=== PATIENT | female | born 1955 | race African-American/Black ===

== ENCOUNTER 2016-10-22 22:53 | Emergency (ER) | payer OTHER ==
[~2016-10-22] VITALS: Ht 162.6 cm; Wt 65.2 kg
[~2016-10-22 22:53] MED LIST: 1-ME1LIQ PO; AMLO10TA2 PO; LIPI20TA PO; MEDR4PAK PO; MOBI7.5T PO; NAPR250T PO; OXYB5TAB PO
[2016-10-22 22:55] VITALS: BP 157/84; PULSE 98; RESP 16; TEMP 98.4; O2SAT 98
[2016-10-22] MEDS ORDERED: SODIUM CHLOR 0.9% 1000 ML INJ 1,000 ML IV SCH (23:44)
[2016-10-22] MEDS ORDERED: ONDANSETRON HCL 4 MG/2 ML VIAL IVP ONE (23:45)
[2016-10-22] MEDS ORDERED: MORPHINE SULFATE 4 MG/ML INJ IV PUSH ONE (23:45)
[2016-10-22] MEDS ORDERED: PANTOPRAZOLE SODIUM 40 MG VIAL IVP ONE (23:45)
[2016-10-22] MEDS ORDERED: metroNIDAZOLE 500 MG INJ 100 ML IV ONE (23:45)
--- NOTE | 2016-10-22 23:51 | PD ---
HPI Chief Complaint: abdominal pain Time Seen by Provider: 23:39 Travel History International Travel<30 days: No Contact w/Intl Traveler<30days: No Traveled to known affect area: No History of Present Illness HPI 61-year-old female complains of low abdominal pain. Patient states the abdominal pain started 5 days ago. Patient states the pain is cramping pain and sharp pain localized to lower abdomen. Patient denies any pain radiation. Patient denies any nausea vomiting. Patient stated that she has diarrhea. Patient denies any fever chills. Patient denies any back pain. Patient states that she had dysuria but no frequency. Patient has history of ulcerative colitis. On a scale of 1-10 the pain is a 10. PFSH Past Medical History Asthma: No Autoimmune Disease: No Cancer: Yes (pancreatic ca.) COPD: No Diabetes: No Diminished Hearing: No Hypertension: Yes Respiratory: No Immunizations Current: Yes Sleep Apnea: No Menopausal: Yes Past Surgical History Abdominal Surgery: Yes (SURGERY FOR SCAR TISSUE) Appendectomy: Yes Cholecystectomy: Yes Hysterectomy: Yes Social History Alcohol Use: No Tobacco Use: No Substance Use: No Allergies-Medications (Allergen,Severity, Reaction): Coded Allergies: Darvocet-N 100 (Verified Allergy, Mild, NAUSEA, 10/22/16) Penicillin (Verified Allergy, Mild, "MAKES ME FEEL BAD", 10/22/16) Reported Meds & Prescriptions Reported Meds & Active Scripts Active Flagyl (Metronidazole) 500 Mg Tab 500 Mg PO TID Cipro (Ciprofloxacin HCl) 500 Mg Tab 500 Mg PO BID Amlodipine (Amlodipine Besylate) 10 Mg Tab 10 Mg PO DAILY Reported Apriso (Mesalamine) 0.375 Gm Caper 1.5 Gm PO DAILY Review of Systems General / Constitutional: No: Fever Eyes: No: Visual changes HENT: No: Headaches Cardiovascular: No: Chest Pain or Discomfort Respiratory: No: Shortness of Breath Gastrointestinal: Positive: Diarrhea, Abdominal Pain Genitourinary: No: Dysuria Musculoskeletal: No: Pain Skin: No Rash Neurologic: No: Weakness Psychiatric: No: Depression Endocrine: No: Polydipsia Hematologic/Lymphatic: No: Easy Bruising Physical Exam Narrative GENERAL: Well-nourished, well-developed patient. SKIN: Focused skin assessment warm/dry. HEAD: Normocephalic. EYES: No scleral icterus. No injection or drainage. NECK: Supple, trachea midline. No JVD or lymphadenopathy. CARDIOVASCULAR: Regular rate and rhythm without murmurs, gallops, or rubs. RESPIRATORY: Breath sounds equal bilaterally. No accessory muscle use. GASTROINTESTINAL: Abdomen soft, nondistended. Patient has moderate tenderness on palpation lower abdomen. No rebound tenderness. No mass. MUSCULOSKELETAL: No cyanosis, or edema. BACK: Nontender without obvious deformity. No CVA tenderness. Neurologic exam normal. Data Data Last Documented VS Vital Signs Date Time Temp Pulse Resp B/P Pulse Ox O2 Delivery O2 Flow Rate FiO2 10/23/16 01:55 72 16 140/73 99 Room Air 10/22/16 22:55 98.4 Orders Complete Blood Count With Diff (10/22/16 23:44) Comprehensive Metabolic Panel (10/22/16 23:44) Prothrombin Time / Inr (Pt) (10/22/16 23:44) Act Partial Throm Time (Ptt) (10/22/16 23:44) Urinalysis - C+S If Indicated (10/22/16 23:44) Ct Abd/Pel W Iv Contrast(Rout) (10/22/16 23:44) Iv Access Insert/Monitor (10/22/16 23:44) Ecg Monitoring (10/22/16 23:44) Oximetry (10/22/16 23:44) Morphine Inj (Morphine Inj) (10/22/16 23:45) Ondansetron Inj (Zofran Inj) (10/22/16 23:45) Pantoprazole Inj (Protonix Inj) (10/22/16 23:45) Sodium Chlor 0.9% 1000 Ml Inj (Ns 1000 M (10/22/16 23:44) Metronidazole 500 Mg Inj (Flagyl 500 Mg (10/22/16 23:45) Iohexol 350 Inj (Omnipaque 350 Inj) (10/23/16 01:03) Labs Laboratory Tests Test 10/23/16 10/23/16 00:10 00:15 Urine Color YELLOW Urine Turbidity CLEAR Urine pH 5.5 Urine Specific Presto 1.020 Urine Protein NEG mg/dL Urine Glucose (UA) NEG mg/dL Urine Ketones NEG mg/dL Urine Occult Blood MOD Urine Nitrite NEG Urine Bilirubin NEG Urine Leukocyte Esterase NEG Urine RBC 4-9 /hpf Urine WBC 0-2 /hpf Urine Squamous Epithelial 6-8 /hpf Cells Urine Bacteria NONE /hpf Microscopic Urinalysis Comment CULT NOT INDICATED White Blood Count 11.1 TH/MM3 Red Blood Count 4.09 MIL/MM3 Hemoglobin 11.7 GM/DL Hematocrit 36.2 % Mean Corpuscular Volume 88.7 FL Mean Corpuscular Hemoglobin 28.7 PG Mean Corpuscular Hemoglobin 32.4 % Concent Red Cell Distribution Width 13.7 % Platelet Count 275 TH/MM3 Mean Platelet Volume 9.5 FL Neutrophils (%) (Auto) 45.8 % Lymphocytes (%) (Auto) 33.3 % Monocytes (%) (Auto) 19.5 % Eosinophils (%) (Auto) 0.7 % Basophils (%) (Auto) 0.7 % Neutrophils # (Auto) 5.0 TH/MM3 Lymphocytes # (Auto) 3.7 TH/MM3 Monocytes # (Auto) 2.2 TH/MM3 Eosinophils # (Auto) 0.1 TH/MM3 Basophils # (Auto) 0.1 TH/MM3 CBC Comment AUTO DIFF Differential Comment AUTO DIFF CONFIRMED Platelet Estimate NORMAL Platelet Morphology Comment NORMAL Red Cell Morphology Comment NORMAL Prothrombin Time 12.0 SEC Prothromb Time International 1.1 RATIO Ratio Activated Partial 30.6 SEC Thromboplast Time Sodium Level 141 MEQ/L Potassium Level 3.9 MEQ/L Chloride Level 106 MEQ/L Carbon Dioxide Level 26.2 MEQ/L Anion Gap 9 MEQ/L Blood Urea Nitrogen 12 MG/DL Creatinine 0.88 MG/DL Estimat Glomerular Filtration 79 ML/MIN Rate Random Glucose 97 MG/DL Calcium Level 7.9 MG/DL Total Bilirubin 0.4 MG/DL Aspartate Amino Transf 18 U/L (AST/SGOT) Alanine Aminotransferase 31 U/L (ALT/SGPT) Alkaline Phosphatase 137 U/L Total Protein 8.4 GM/DL Albumin 3.5 GM/DL [facility] Medical Decision Making Medical Screen Exam Complete: Yes Emergency Medical Condition: Yes Interpretation(s) Last Impressions Abdomen/Pelvis CT 10/22/16 6154 Signed Impressions: Service Date/Time: September 00:51 - CONCLUSION: 1. No acute finding is identified within the abdomen or pelvis to explain the clinical symptoms. Please note examination quality is degraded by respiratory motion artifact. 2. There is enlargement of the common bile duct but patient is post cholecystectomy and there is no intrahepatic bile duct dilatation. This suggest a postcholecystectomy change is the cause. Jasper May MD 2:26 AM. CBC within normal limit. WBC 11.1. Normal differential. CMP within normal limit. Calcium 7.9. UA positive RBC. Differential Diagnosis Differential diagnosis including UTI, pyelonephritis, nephrolithiasis, colitis. Narrative Course 61-year-old female with low abdominal pain. History of colitis. Normal saline solution 1 25 cc an hour. Morphine 2 mg IV. Zofran 4 mg IV. Protonix 40 mg IV. Flagyl 500 mg IV. Diagnosis Primary Impression: Colitis Additional Impression: Gastroenteritis Patient Instructions: General Instructions Additional Instructions: Take medications as directed. Follow-up with personal physician. Return if persistent problem or worse. Med/Other Pt SpecificInfo: Prescription(s) given Scripts Metronidazole (Flagyl)500 Mg [id number] Mg PO TID #21 TAB Ref 0 Prov:Fuad Graves MD 10/23/16 Ciprofloxacin (Cipro)500 Mg [id number] Mg PO BID #14 TAB Prov:Fuad Graves MD 10/23/16 Disposition: 01 DISCHARGE HOME Condition: Stable Fuad Graves MD Oct 22, 2016 23:51
[2016-10-23 00:18] LABS: GLUCOSE,URINE NEG (NEG); KETONE, URINE NEG (NEG); NITRITE,URINE NEG (NEG); PH, URINE 5.5 (5.0-8.5)
[2016-10-23 00:24] LABS: BASOPHIL # 0.1 TH/MM3 (0-0.2); BASOPHIL % 0.7 % (0.0-2.0); EOSINOPHIL # 0.1 TH/MM3 (0-0.4); EOSINOPHIL % 0.7 % (0.0-4.0); HEMATOCRIT 36.2 % (35.0-46.0); LYMPH % 33.3 % (9.0-44.0); LYMPHOCYTE # 3.7 TH/MM3 (1.0-4.8); MEAN CELL VOLUME 88.7 FL (80.0-100.0); MEAN CORPUSCULAR HEMOGLOBIN 28.7 PG (27.0-34.0); MEAN CORPUSCULAR HGB CONC 32.4 % (32.0-36.0); MONO % 19.5 % (0.0-8.0); NEUT % 45.8 % (16.0-70.0); PLATELET COUNT 275 TH/MM3 (150-450); RED BLOOD COUNT 4.09 MIL/MM3 (4.00-5.30); RED CELL DISTRIBUTION WIDTH 13.7 % (11.6-17.2); WHITE BLOOD COUNT 11.1 TH/MM3 (4.0-11.0)
[2016-10-23 00:30] LABS: BLOOD, URINE MOD (NEG)
[2016-10-23 00:31] LABS: COMMENT (UR) CULT NOT INDICATED; CULTURE IF INDICATED CULT NOT INDICATED; URINE COLOR YELLOW (YELLW/STRAW); WBC, URINE 0-2 /hpf (0-5)
[2016-10-23 00:32] LABS: CHLORIDE 106 MEQ/L (98-107); POTASSIUM 3.9 MEQ/L (3.5-5.1); SODIUM (NA) 141 MEQ/L (136-145)
[2016-10-23 00:34] LABS: HEMO FLAGS AUTO DIFF
[2016-10-23 00:36] LABS: ANION GAP 9 MEQ/L (5-15); BICARBONATE 26.2 MEQ/L (21.0-32.0); BLOOD UREA NITROGEN 12 MG/DL (7-18)
[2016-10-23 00:38] LABS: APTT (PATIENT) 30.6 SEC (24.3-30.1); INTERNATIONAL NORMALIZED RATIO 1.1 RATIO
[2016-10-23 00:39] LABS: ALT (GPT) 31 U/L (10-53); AST (GOT) 18 U/L (15-37); GLOMERULAR FILTRATION RATE 79 ML/MIN (>89)
[2016-10-23 00:41] LABS: TOTAL BILIRUBIN ADULT 0.4 MG/DL (0.2-1.0)
[2016-10-23 00:42] LABS: ALKALINE PHOSPHATASE 137 U/L (45-117)
[2016-10-23 00:49] LABS: PLATELET ESTIMATE SMEAR NORMAL (NORMAL); PLATELET MORPHOLOGY NORMAL (NORMAL); SCAN/DIFF AUTO DIFF CONFIRMED
[2016-10-23] MEDS ORDERED: IOHEXOL 350 MG/ML 10 ML VIAL (for RAD DIAG) IV ONE (01:03)
--- NOTE | 2016-10-23 01:20 | RADRPT ---
EXAM DATE/TIME: 10/23/2016 00:51 [facility] COMPARISON: No previous studies available for comparison. INDICATIONS : Lower abdominal pain. IV CONTRAST: 100 cc Omnipaque 350 (iohexol) IV ORAL CONTRAST: No oral contrast ingested. RADIATION DOSE: 6.85 CTDIvol (mGy) MEDICAL HISTORY : Carcinoma, pancreas. Hypertension. Ulcerative colitis. SURGICAL HISTORY : Cholecystectomy. Appendectomy.Hysterectomy. ENCOUNTER: Initial ACUITY: 4 - 6 days PAIN SCALE: 10/10 LOCATION: lower quadrant abdomen TECHNIQUE: Volumetric scanning of the abdomen and pelvis was performed. Using automated exposure control and ad justment of the mA and/or kV according to patient size, radiation dose was kept as low as reasonably achievable to obtain optimal diagnostic quality images. DICOM format image data is available electro nically for review and comparison. FINDINGS: There is respiratory motion artifact. LOWER LUNGS: The visualized lower lungs are clear. LIVER: Liver density is suggestive of steatosis. No liver lesion is identified. There are clips in the gallb ladder fossa and in the right upper quadrant in general. Common bile duct is dilated measuring 10 mm. There is no dilation of the biliary tree. SPLEEN: Normal size without lesion. PANCREAS: Not well visualized due to the artifact but no pancreas abnormality is seen. KIDNEYS: Normal in size and shape. There is no mass, stone or hydronephrosis. ADRENAL GLANDS: Within normal limits. VASCULAR: There is no aortic aneurysm. There is mild atherosclerotic disease. Duplicated IVC is present. BOWEL/MESENTERY: The stomach demonstrates no abnormality. Small bowel proximally is within normal limits. There is an enlarged segment of bowel in the right lower quadrant with a bowel staple line indicating prior surge ry. No colon abnormality is seen. There is no free intraperitoneal air or fluid. ABDOMINAL WALL: Within normal limits. RETROPERITONEUM: There is no lymphadenopathy. BLADDER: No wall thickening or mass. REPRODUCTIVE: Uterus is absent. INGUINAL: There is no lymphadenopathy or hernia. MUSCULOSKELETAL: No acute abnormality. CONCLUSION: 1. No acute finding is identified within the abdomen or pelvis to explain the clinical symptoms. Plea se note examination quality is degraded by respiratory motion artifact. 2. There is enlargement of the common bile duct but patient is post cholecystectomy and there is no i ntrahepatic bile duct dilatation. This suggest a postcholecystectomy change is the cause. Jasper May MD on October 23, 2016 at 1:13 Board Certified Radiologist. This report was verified electronically.
[2016-10-23 01:50] VITALS: RESP 16; O2SAT 99
[2016-10-23 01:55] VITALS: BP 140/73; PULSE 72; RESP 16; O2SAT 99
[2016-10-23] MEDS ORDERED: APRI0.372 PO (02:17)
[2016-10-23] MEDS ORDERED: METR-1 PO (02:29)
[2016-10-23] MEDS ORDERED: CIPR-9 PO (02:29)
[2016-10-23 02:30] VITALS: BP 137/71; PULSE 68; RESP 16; O2SAT 98
== END 2016-10-23 02:59 | disposition home or self-care (01) ==
LOC: PHED 22:53
DX: K51.90 Ulcerative colitis, unspecified, without complications (principal)
CPT/HCPCS: 74177; 80053; 81001; 85025; 85610; 85730; 96365; 96366; 96375; 99285; C9113; J2270; J2405; J7030; Q9967

== ENCOUNTER → 2016-12-03 | Outpatient (CLI) | payer OTHER ==
[~2016-12-03] VITALS: Ht 162.6 cm; Wt 63.4 kg
[~2016-12-03] MED LIST changes: -1-ME1LIQ PO; +APRI0.372 PO; +B-12100T PO; +CHLORHEXIDINE GLUCONATE 2 % 1 PACK (2 CLOTHS) TOPICAL PRN; +CIPR-9 PO; +INSULIN HUMAN REGULAR 1,000 UNITS/10 ML VIAL SQ PRN; +LACTATED RINGER'S 1000 ML IV PRN; -LIPI20TA PO; -MEDR4PAK PO; +METOPROLOL TARTRATE 25 MG TAB PO PRN; +METR-1 PO; -MOBI7.5T PO; -NAPR250T PO; -OXYB5TAB PO; +POVIDONE IODINE 5% (ANTISEPSIS KIT) 4 APPLICATIONS EACH NARE PRN; +PROPOFOL 200 MG/20 ML AMP IV PUSH ONE; +SODIUM CHLORID 0.9% 500 ML IV PRN
--- NOTE | 2016-12-03 15:11 | MR ---
cc: BAUTISTA RODRIGES M.D. DATE: 12/03/2016 DATE OF : 1955 PROCEDURE Colonoscopy. INDICATION FOR PROCEDURE Prior history of ulcer, proctocolitis, colorectal cancer screening. PHOTOGRAPHS AND BIOPSIES Photographs and biopsies were taken. PREMEDICATION Administered by anesthesiology. MONITORING Monitoring was accomplished with pulse oximeter, EKG and blood pressure monitor. PROCEDURE NOTE After informed consent was obtained and the procedure risks and benefits were explained including risks of bleeding, sepsis, perforation, risks of anesthesia, the patient was placed in the left lateral position. The video colonoscope was inserted in the rectum, passed all the way to the cecum in the usual fashion. The mucosa throughout appeared to be grossly normal. The terminal ileum appeared to be normal as well. In the ascending colon scattered diverticulosis was noted. Mucosa throughout was normal. As the scope was withdrawn there was no evidence of active inflammatory bowel disease. Multiple biopsies were taken in the ascending, transverse, descending, rectosigmoid and rectum. The rectum appeared to be free of disease as well. In the retroflex view, grade I to early grade II internal hemorrhoids were noted without active bleeding. The patient tolerated the procedure well. IMPRESSION 1. Unremarkable colonoscopy to cecum. 2. Diverticular disease noted in the right colon. 3. Internal hemorrhoids as noted above. 4. No active inflammatory bowel disease noted. PLAN 1. Would continue her current mesalamine therapy. 2. Follow-up biopsies. 3. Repeat colonoscopy in 2-3 years for surveillance. MD VESNA Katz/PRUDENCE /2:48 PM /3:01 PM
[2016-12-03 15:18] VITALS: BP 154/78; PULSE 65; RESP 18; O2SAT 100
--- NOTE | 2016-12-04 13:01 | EKG ---
Date Performed: 12/03/2016 Time Performed: 11:43:04 PTAGE: 61 years EKG: Sinus rhythm BORDERLINE LEFT AXIS DEVIATION MINIMAL VOLTAGE CRITERIA FOR LVH, CONSIDER NORMAL VARIANT BORDERLINE ECG PREVIOUS TRACING : 02/13/2003 05.25 DOCTOR: Dorian Abarca Interpretating Date/Time 12/04/2016 12:53:15
== END ==
LOC: HEND 11:19
PROVIDERS: ATTEND Internal Medicine Gastroenterology
DX: Z12.11 Encounter for screening for malignant neoplasm of colon (principal); K57.90 Diverticulosis of intestine, part unspecified, without perforation or abscess without bleeding; K64.8 Other hemorrhoids; R94.31 Abnormal electrocardiogram [ECG] [EKG]
CPT/HCPCS: 00810; 45380; 88305; 93005; J7120

== ENCOUNTER 2017-05-26 18:51 | Emergency (ER) | payer OTHER ==
[~2017-05-26 18:51] MED LIST changes: -CHLORHEXIDINE GLUCONATE 2 % 1 PACK (2 CLOTHS) TOPICAL PRN; -CIPR-9 PO; -INSULIN HUMAN REGULAR 1,000 UNITS/10 ML VIAL SQ PRN; -LACTATED RINGER'S 1000 ML IV PRN; -METOPROLOL TARTRATE 25 MG TAB PO PRN; -METR-1 PO; -POVIDONE IODINE 5% (ANTISEPSIS KIT) 4 APPLICATIONS EACH NARE PRN; -PROPOFOL 200 MG/20 ML AMP IV PUSH ONE; -SODIUM CHLORID 0.9% 500 ML IV PRN
[2017-05-26 19:02] VITALS: BP 159/84; PULSE 88; RESP 15; TEMP 98.4; O2SAT 100
[2017-05-26] MEDS ORDERED: MOBI7.5T PO (20:00)
[2017-05-26] MEDS ORDERED: KETOROLAC TROMETHAMINE 60 MG/2 ML (IM) VIAL IM ONE (20:00)
--- NOTE | 2017-05-26 20:06 | PD ---
HPI Chief Complaint: Pain: Acute or Chronic Time Seen by Provider: 19:15 Travel History International Travel<30 days: No Contact w/Intl Traveler<30days: No Traveled to known affect area: No History of Present Illness HPI 61-year-old female with history of bursitis and arthritis presents to the emergency room for evaluation of severe arthritis in her bilateral hands and upper extremities. Patient has chronic pain but over the past several days it has significantly worsened. She went to her primary care physician yesterday who recommended she take Tylenol. States she has been taking Tylenol without any relief in symptoms. Pain is constant, worse with range of motion. Improves at rest. She has tried several topical treatments without relief. Only reports history of hypertension and ulcerative colitis. She denies any recent strenuous activity. Denies any changes in urine output. PFSH Past Medical History Asthma: No Autoimmune Disease: No Cancer: Yes (pancreatic ca.) Cardiovascular Problems: No COPD: No Diabetes: No Diminished Hearing: No Endocrine: No Gastrointestinal Disorders: Yes (ULCERATIVE COLITIS) Genitourinary: No Hepatitis: No Hiatal Hernia: No Hypertension: Yes Immune Disorder: No Musculoskeletal: No Neurologic: No Psychiatric: No Reproductive: No Respiratory: No Immunizations Current: Yes Sleep Apnea: No Thyroid Disease: No ?: Not Menopausal: Yes Past Surgical History Abdominal Surgery: Yes (SURGERY FOR SCAR TISSUE) Appendectomy: Yes Cardiac Surgery: No Cholecystectomy: Yes Ear Surgery: No Endocrine Surgery: No Eye Surgery: No Genitourinary Surgery: No Gynecologic Surgery: Yes (HYSTERECTOMY) Hysterectomy: Yes Joint Replacement: No Oral Surgery: No Thoracic Surgery: No Other Surgery: Yes Social History Alcohol Use: No Tobacco Use: No Substance Use: No Allergies-Medications (Allergen,Severity, Reaction): Coded Allergies: acetaminophen (Unverified Allergy, Mild, NAUSEA, 05/26/17) penicillin G (Unverified Allergy, Mild, "MAKES ME FEEL BAD", 05/26/17) propoxyphene (Unverified Allergy, Mild, NAUSEA, 05/26/17) Reported Meds & Prescriptions Reported Meds & Active Scripts Active Mobic (Meloxicam) 7.5 Mg Tab 7.5 Mg PO DAILY Amlodipine (Amlodipine Besylate) 10 Mg Tab 10 Mg PO DAILY Reported B-12 (Cyanocobalamin) 100 Mcg Tab 100 Mcg PO DAILY Apriso (Mesalamine) 0.375 Gm Caper 1.5 Gm PO DAILY Review of Systems Except as stated in HPI: all other systems reviewed are Neg Physical Exam Narrative GENERAL: Well-nourished, well-developed female no acute distress. Afebrile. Ambulatory. SKIN: Focused skin assessment warm/dry. HEAD: Normocephalic. EYES: No scleral icterus. No injection or drainage. NECK: Supple, trachea midline. No JVD or lymphadenopathy. CARDIOVASCULAR: Regular rate and rhythm without murmurs, gallops, or rubs. RESPIRATORY: Breath sounds equal bilaterally. No accessory muscle use. MUSCULOSKELETAL: No cyanosis. Mild edema bilateral hands, right worse than left. Limited range of motion of the bilateral second finger secondary to pain and swelling. 2+ radial pulses are equal bilaterally. Full range of motion. Tenderness to palpation of bilateral anterior humeral heads. Data Data Last Documented VS Vital Signs Date Time Temp Pulse Resp B/P (MAP) Pulse Ox O2 Delivery O2 Flow Rate FiO2 05/26/17 19:02 98.4 88 15 159/84 (109) 100 Orders Orders Ketorolac Inj (Toradol Inj) (05/26/17 20:00) [facility] Medical Decision Making Medical Screen Exam Complete: Yes Emergency Medical Condition: Yes Medical Record Reviewed: Yes Differential Diagnosis Osteoarthritis, rheumatoid arthritis, bursitis, rhabdomyolysis unlikely Narrative Course 61-year-old female with history of arthritis and bursitis presents to the emergency room for evaluation of bilateral upper extremity pain for the past several days. Denies any trauma or injury. Denies any strenuous activity. Physical exam reveals mild edema of bilateral hands, right worse than left. Patient has trigger finger of the second finger bilaterally. Bilateral upper extremities are neurovascularly intact with 2+ radial pulse. She has tenderness to palpation of hands. History and physical exam consistent with arthritis. Patient given Toradol in the emergency room. Discharged with prescription for short course of Mobic. Told to follow-up with her primary care physician or return for symptoms. She understands and agrees to plan. Diagnosis Primary Impression: Arthritis Referrals: Primary Care Physician Additional Instructions: Mobic as directed, until gone. Follow-up with primary care physician. Return for worsening symptoms. Med/Other Pt SpecificInfo: Prescription(s) given Scripts Meloxicam (Mobic) 7.5 Mg Tab 7.5 MG PO DAILY for Pain, #10 TAB 0 Refills Prov: Yanet Cervantes DO 05/26/17 Disposition: 01 DISCHARGE HOME Condition: Stable Ginna Barroso May 26, 2017 20:06
== END 2017-05-26 20:19 | disposition home or self-care (01) ==
LOC: NEPK 18:51
DX: M19.042 Primary osteoarthritis, left hand (principal); M19.041 Primary osteoarthritis, right hand; M65.322 Trigger finger, left index finger; M65.321 Trigger finger, right index finger; I10 Essential (primary) hypertension; Z79.899 Other long term (current) drug therapy; Z88.0 Allergy status to penicillin; Z88.6 Allergy status to analgesic agent; Z88.8 Allergy status to other drugs, medicaments and biological substances
CPT/HCPCS: 96372; 99283; J1885

== ENCOUNTER 2017-08-07 08:54 | Emergency (ER) | payer SELFPAY ==
[~2017-08-07] VITALS: Ht 162.6 cm; Wt 60.0 kg
[~2017-08-07 08:54] MED LIST changes: +MOBI7.5T PO
[2017-08-07 09:05] VITALS: BP 161/76; PULSE 87; RESP 18; TEMP 97
[2017-08-07] MEDS ORDERED: KETOROLAC TROMETHAMINE 60 MG/2 ML (IM) VIAL IM ONE (09:30)
--- NOTE | 2017-08-07 09:35 | PD ---
HPI Chief Complaint: Pain: Acute or Chronic Time Seen by Provider: 09:28 Travel History International Travel<30 days: No Contact w/Intl Traveler<30days: No Traveled to known affect area: No History of Present Illness HPI This is a 62-year-old female presents today with complaints of pain in her right jaw. Patient states that she celebrated her birthday yesterday and when she woke up this morning, she had tenderness in her right jaw just in front of her ear. There is no reported trauma. There is no reported chest pain or shortness of breath. She reports point tenderness and points to her TMJ area. She states that when she opens her mouth it it is sore in that area. She denies any malocclusion of her dentures. There are is no fevers, chills. There is no rash. PFSH Past Medical History Asthma: No Autoimmune Disease: No Cancer: Yes (pancreatic ca.) Cardiovascular Problems: No COPD: No Diabetes: No Diminished Hearing: No Endocrine: No Gastrointestinal Disorders: Yes (ULCERATIVE COLITIS) Genitourinary: No Hepatitis: No Hiatal Hernia: No Hypertension: Yes Immune Disorder: No Musculoskeletal: No Neurologic: No Psychiatric: No Reproductive: No Respiratory: No Immunizations Current: Yes Sleep Apnea: No Thyroid Disease: No ?: Not Menopausal: Yes Past Surgical History Abdominal Surgery: Yes (SURGERY FOR SCAR TISSUE) Appendectomy: Yes Cardiac Surgery: No Cholecystectomy: Yes Ear Surgery: No Endocrine Surgery: No Eye Surgery: No Genitourinary Surgery: No Gynecologic Surgery: Yes (HYSTERECTOMY) Hysterectomy: Yes Joint Replacement: No Oral Surgery: No Thoracic Surgery: No Other Surgery: Yes Social History Alcohol Use: No Tobacco Use: No Substance Use: No Allergies-Medications (Allergen,Severity, Reaction): Coded Allergies: acetaminophen (Unverified Allergy, Mild, NAUSEA, 05/26/17) penicillin G (Unverified Allergy, Mild, "MAKES ME FEEL BAD", 05/26/17) propoxyphene (Unverified Allergy, Mild, NAUSEA, 05/26/17) Reported Meds & Prescriptions Reported Meds & Active Scripts Active Medrol Dosepak (Methylprednisolone) 4 Mg Dspk 4 Mg PO DIRECTED Per Pharmacist direction Mobic (Meloxicam) 7.5 Mg Tab 7.5 Mg PO DAILY Amlodipine (Amlodipine Besylate) 10 Mg Tab 10 Mg PO DAILY Reported B-12 (Cyanocobalamin) 100 Mcg Tab 100 Mcg PO DAILY Apriso (Mesalamine) 0.375 Gm Caper 1.5 Gm PO DAILY Review of Systems Except as stated in HPI: all other systems reviewed are Neg General / Constitutional: No: Fever, Chills Eyes: No: Blurred Vision, Photophobia HENT: Positive: Other (Right TMJ pain), No: Headaches, Neck Pain Cardiovascular: No: Chest Pain or Discomfort, Palpitations Respiratory: No: Cough, Shortness of Breath Gastrointestinal: No: Nausea, Vomiting Physical Exam Narrative GENERAL: Well-developed well-nourished female in no acute respiratory distress. SKIN: Focused skin assessment warm/dry. HEAD: Atraumatic. Normocephalic. EYES: Pupils equal and round. No scleral icterus. No injection or drainage. ENT: No nasal bleeding or discharge. Mucous membranes pink and moist. On palpation of the patient's TMJ on the right side, there is point tenderness which the patient reports is the area that hurts. She has no trismus. She is able to open her mouth however she reports it hurts when she does. There is no malocclusion noted. There is no swelling or asymmetry. NECK: Trachea midline. No JVD. Supple. NEUROLOGICAL: Awake and alert. No obvious cranial nerve deficits. Motor grossly within normal limits. Normal speech. PSYCHIATRIC: Appropriate mood and affect; insight and judgment normal. Data Data Last Documented VS Vital Signs Date Time Temp Pulse Resp B/P (MAP) Pulse Ox O2 Delivery O2 Flow Rate FiO2 08/07/17 09:05 97.0 87 18 161/76 (104) Orders Orders Ketorolac Inj (Toradol Inj) (08/07/17 09:30) [facility] Medical Decision Making Medical Screen Exam Complete: Yes Emergency Medical Condition: Yes Differential Diagnosis TMJ inflammation versus mumps versus zoster Narrative Course 62-year-old female presents with pain in her right jaw. Patient has tenderness over her right TMJ. She has been given Toradol 60 mg IM 1 dose. She will be discharged with a Medrol Dosepak. She is instructed to use Motrin 600 mg every 6-8 hours as needed for the discomfort. She is instructed to take it with food. Diagnosis Primary Impression: Right temporomandibular joint pain. Additional Instructions: Ibuprofen 600 mg every 6-8 hours as needed. Return if feeling worse. Med/Other Pt SpecificInfo: Prescription(s) given Scripts Methylprednisolone Dosepak (Medrol Dosepak) 4 Mg Dspk 4 MG PO DIRECTED, #1 DSPK 0 Refills Per Pharmacist direction Prov: Manjinder Vitale MD 08/07/17 Disposition: 01 DISCHARGE HOME Condition: Stable Manjinder Vitale MD August 07, 2017 09:35
[2017-08-07] MEDS ORDERED: MEDR4PAK PO (09:39)
== END 2017-08-07 10:17 | disposition home or self-care (01) ==
LOC: NEPE 08:54
DX: M26.621 Arthralgia of right temporomandibular joint (principal)
CPT/HCPCS: 96372; 99283; J1885

== ENCOUNTER 2017-09-11 07:46 | Emergency (ER) | payer OTHER ==
[~2017-09-11] VITALS: Ht 162.6 cm; Wt 60.0 kg
[~2017-09-11 07:46] MED LIST changes: +MEDR4PAK PO
[2017-09-11 07:53] VITALS: BP 143/67; PULSE 90; RESP 16; TEMP 98.5; O2SAT 99
--- NOTE | 2017-09-11 08:07 | PD ---
HPI Chief Complaint: ENT Complaint Time Seen by Provider: 07:55 Travel History International Travel<30 days: No Contact w/Intl Traveler<30days: No Traveled to known affect area: No History of Present Illness HPI Patient is a 62-year-old female presenting to the emergency department for evaluation of left ear pain. Patient states started 3 days ago. She states the pain is throbbing, intermittent, relieved with ibuprofen. She rates her pain a 4 out of 10. Patient states she recently got new dentures and was opening and closing her jaw and her ear started to hurt. Patient has no other complaints at this time. Symptom onset was sudden, symptoms are mild in nature. PFSH Past Medical History Cancer: Yes (pancreatic ca.) Gastrointestinal Disorders: Yes (ULCERATIVE COLITIS) Hypertension: Yes Immunizations Current: Yes Sleep Apnea: No Thyroid Disease: No Menopausal: Yes Past Surgical History Abdominal Surgery: Yes (SURGERY FOR SCAR TISSUE) Appendectomy: Yes Cardiac Surgery: No Cholecystectomy: Yes Ear Surgery: No Endocrine Surgery: No Eye Surgery: No Genitourinary Surgery: No Gynecologic Surgery: Yes (HYSTERECTOMY) Hysterectomy: Yes Joint Replacement: No Oral Surgery: No Thoracic Surgery: No Other Surgery: Yes Social History Alcohol Use: No Tobacco Use: No Substance Use: No Allergies-Medications (Allergen,Severity, Reaction): Coded Allergies: acetaminophen (Unverified Allergy, Mild, NAUSEA, 05/26/17) penicillin G (Unverified Allergy, Mild, "MAKES ME FEEL BAD", 05/26/17) propoxyphene (Unverified Allergy, Mild, NAUSEA, 05/26/17) Reported Meds & Prescriptions Reported Meds & Active Scripts Active Medrol Dosepak (Methylprednisolone) 4 Mg Dspk 4 Mg PO DIRECTED Per Pharmacist direction Mobic (Meloxicam) 7.5 Mg Tab 7.5 Mg PO DAILY Amlodipine (Amlodipine Besylate) 10 Mg Tab 10 Mg PO DAILY Reported B-12 (Cyanocobalamin) 100 Mcg Tab 100 Mcg PO DAILY Apriso (Mesalamine) 0.375 Gm Caper 1.5 Gm PO DAILY Review of Systems Except as stated in HPI: all other systems reviewed are Neg HENT: Positive: Earache Physical Exam Narrative GENERAL: Well-developed, well-nourished, alert female. Presenting in no acute distress. SKIN: Warm and dry. HEAD: Normocephalic. EYES: No scleral icterus. No injection or drainage. EARS: Bilateral pinnae and external canals appear within normal limits. Bilateral tympanic membranes without erythema, dullness or perforation. NECK: Supple, trachea midline. No JVD or lymphadenopathy. CARDIOVASCULAR: Regular rate and rhythm without murmurs, gallops, or rubs. RESPIRATORY: Breath sounds equal bilaterally. No accessory muscle use. GASTROINTESTINAL: Abdomen soft, non-tender, nondistended. MUSCULOSKELETAL: No cyanosis, or edema. BACK: Nontender without obvious deformity. No CVA tenderness. Data Data Last Documented VS Vital Signs Date Time Temp Pulse Resp B/P (MAP) Pulse Ox O2 Delivery O2 Flow Rate FiO2 09/11/17 07:53 98.5 90 16 143/67 (92) 99 MDM Medical Decision Making Medical Screen Exam Complete: Yes Emergency Medical Condition: Yes Interpretation(s) Vital Signs Date Time Temp Pulse Resp B/P (MAP) Pulse Ox O2 Delivery O2 Flow Rate FiO2 09/11/17 07:53 98.5 90 16 143/67 (92) 99 Differential Diagnosis Otitis media versus otitis externa versus effusion versus TMJ versus dental difficulties versus other Narrative Course Patient is well-appearing 62-year-old female presenting for evaluation of left ear pain. Physical examination is unremarkable, patient's vital signs are stable. Patient was encouraged to follow-up with her dentist regarding her dentures may need to be adjusted. She was encouraged to take acetaminophen or ibuprofen as needed and as directed for pain. She was reassured at this time that there are no acute findings regarding her ears. She has no tenderness to palpation on the TMJ bilaterally. Patient verbalized understanding of instructions. Patient stable for discharge. Diagnosis Primary Impression: Referred otogenic pain Qualified Codes: H92.02 - Otalgia, left ear Referrals: Dentist Primary Care Physician Patient Instructions: General Instructions Additional Instructions: Follow-up with your dentist for evaluation of your dentures Follow-up with your primary doctor Take [id number] acetaminophen or ibuprofen as needed and as directed for pain Return to emergency department for any new or worsening symptoms Med/Other Pt SpecificInfo: No Change to Meds Disposition: 01 DISCHARGE HOME Condition: Stable Dulce Cali Sep 11, 2017 08:07
== END 2017-09-11 08:25 | disposition home or self-care (01) ==
LOC: NEPD 07:46
DX: H92.02 Otalgia, left ear (principal); I10 Essential (primary) hypertension
CPT/HCPCS: 99282

== ENCOUNTER 2017-09-14 07:20 | Emergency (ER) | payer OTHER ==
[~2017-09-14] VITALS: Ht 162.6 cm; Wt 58.8 kg
[2017-09-14 07:24] VITALS: BP 134/68; PULSE 87; RESP 16; TEMP 98.6; O2SAT 98
[2017-09-14] MEDS ORDERED: SODIUM CHLOR 0.9% 1000 ML INJ 1,000 ML IV SCH (07:49)
--- NOTE | 2017-09-14 07:53 | PD ---
HPI Chief Complaint: GI Complaint Time Seen by Provider: 07:45 Travel History International Travel<30 days: No Contact w/Intl Traveler<30days: No Traveled to known affect area: No History of Present Illness HPI 62yo F with PMH of HTN and pancreatic cancer (cancer free for 25 years), colitis presents to the ED with c/o lower abdominal pain and nonbloody diarrhea for 4 days. Said pain is achy, constant and more lower and left lower abdomen. Denies any fever, chest pain, sob, n/v, dysuria, hematuria, focal weakness or numbness. PFSH Past Medical History Hx Anticoagulant Therapy: No Cancer: Yes (pancreatic ca.) Cardiovascular Problems: Yes (htn on meds) Diminished Hearing: No Gastrointestinal Disorders: Yes (ULCERATIVE COLITIS) Hypertension: Yes Immunizations Current: Yes Sleep Apnea: No Thyroid Disease: No Tetanus Vaccination: > 5 Years Influenza Vaccination: No Menopausal: Yes Past Surgical History Abdominal Surgery: Yes (SURGERY FOR SCAR TISSUE) Appendectomy: Yes Cardiac Surgery: No Cholecystectomy: Yes Ear Surgery: No Endocrine Surgery: No Eye Surgery: No Genitourinary Surgery: No Gynecologic Surgery: Yes (HYSTERECTOMY) Hysterectomy: Yes Joint Replacement: No Oral Surgery: No Thoracic Surgery: No Other Surgery: Yes Social History Alcohol Use: No Tobacco Use: No Substance Use: No Allergies-Medications (Allergen,Severity, Reaction): Coded Allergies: acetaminophen (Unverified Allergy, Mild, NAUSEA, 09/14/17) penicillin G (Unverified Allergy, Mild, "MAKES ME FEEL BAD", 09/14/17) propoxyphene (Unverified Allergy, Mild, NAUSEA, 09/14/17) Reported Meds & Prescriptions Reported Meds & Active Scripts Active Amlodipine (Amlodipine Besylate) 10 Mg Tab 10 Mg PO DAILY Reported B-12 (Cyanocobalamin) 100 Mcg Tab 100 Mcg PO DAILY Apriso (Mesalamine) 0.375 Gm Caper 1.5 Gm PO DAILY Review of Systems Except as stated in HPI: all other systems reviewed are Neg Physical Exam Narrative GENERAL: 62yo F in mild distress. SKIN: Focused skin assessment warm/dry. HEAD: Atraumatic. Normocephalic. EYES: Pupils equal and round. No scleral icterus. No injection or drainage. ENT: No nasal bleeding or discharge. Mucous membranes pink and moist. NECK: Trachea midline. No JVD. CARDIOVASCULAR: Regular rate and rhythm. No murmur appreciated. RESPIRATORY: No accessory muscle use. Clear to auscultation. Breath sounds equal bilaterally. GASTROINTESTINAL: Abdomen soft, +TTP suprapubic and left lower abdomen. No rebound tenderness or guarding. MUSCULOSKELETAL: No obvious deformities. No clubbing. No cyanosis. No edema. NEUROLOGICAL: Awake and alert. No obvious cranial nerve deficits. Motor grossly within normal limits. Normal speech. PSYCHIATRIC: Appropriate mood and affect; insight and judgment normal. Data Data Last Documented VS Vital Signs Date Time Temp Pulse Resp B/P (MAP) Pulse Ox O2 Delivery O2 Flow Rate FiO2 09/14/17 08:10 16 09/14/17 07:24 98.6 87 134/68 (90) 98 Orders Orders Complete Blood Count With Diff (09/14/17 07:49) Comprehensive Metabolic Panel (09/14/17 07:49) Lipase (09/14/17 07:49) Urinalysis - C+S If Indicated (09/14/17 07:49) Ct Abd/Pel W Iv Contrast(Rout) (09/14/17 07:49) Morphine Inj (Morphine Inj) (09/14/17 08:00) Sodium Chlor 0.9% 1000 Ml Inj (Ns 1000 M (09/14/17 07:49) Iohexol 350 Inj (Omnipaque 350 Inj) (09/14/17 08:49) Potassium Chloride (Kcl) (09/14/17 09:00) Ciprofloxacin (Cipro) (09/14/17 10:00) Metronidazole (Flagyl) (09/14/17 10:00) Labs Laboratory Tests Test 09/14/17 07:50 09/14/17 08:00 Urine Color YELLOW Urine Turbidity CLEAR Urine pH 6.5 Urine Specific [place] 1.010 Urine Protein NEG mg/dL Urine Glucose (UA) NEG mg/dL Urine Ketones NEG mg/dL Urine Occult Blood TRACE Urine Nitrite NEG Urine Bilirubin NEG Urine Urobilinogen 0.2 mg/dL Urine Leukocyte Esterase SMALL Urine RBC 0-3 /hpf Urine WBC 0-2 /hpf Urine Squamous Epithelial Cells 0-5 /hpf Microscopic Urinalysis Comment CULT NOT INDICATED White Blood Count 9.9 TH/MM3 Red Blood Count 3.91 MIL/MM3 Hemoglobin 11.0 GM/DL Hematocrit 33.9 % Mean Corpuscular Volume 86.9 FL Mean Corpuscular Hemoglobin 28.2 PG Mean Corpuscular Hemoglobin Concent 32.5 % Red Cell Distribution Width 14.1 % Platelet Count 315 TH/MM3 Mean Platelet Volume 8.1 FL Neutrophils (%) (Auto) 60.7 % Lymphocytes (%) (Auto) 21.7 % Monocytes (%) (Auto) 15.4 % Eosinophils (%) (Auto) 0.4 % Basophils (%) (Auto) 1.8 % Neutrophils # (Auto) 6.0 TH/MM3 Lymphocytes # (Auto) 2.2 TH/MM3 Monocytes # (Auto) 1.5 TH/MM3 Eosinophils # (Auto) 0.0 TH/MM3 Basophils # (Auto) 0.2 TH/MM3 CBC Comment DIFF FINAL Differential Comment Blood Urea Nitrogen 9 MG/DL Creatinine 0.85 MG/DL Random Glucose 93 MG/DL Total Protein 7.8 GM/DL Albumin 2.6 GM/DL Calcium Level 7.5 MG/DL Alkaline Phosphatase 91 U/L Aspartate Amino Transf (AST/SGOT) 22 U/L Alanine Aminotransferase (ALT/SGPT) 19 U/L Total Bilirubin 0.5 MG/DL Sodium Level 141 MEQ/L Potassium Level 3.2 MEQ/L Chloride Level 103 MEQ/L Carbon Dioxide Level 30.5 MEQ/L Anion Gap 8 MEQ/L Estimat Glomerular Filtration Rate 81 ML/MIN Lipase 23 U/L MDM Medical Decision Making Medical Screen Exam Complete: Yes Emergency Medical Condition: Yes Differential Diagnosis Diverticulitis vs. cystitis Narrative Course 62yo F with left sided abdominal pain and diarrhea. Pt said she has ulcerative colitis and is on mesalamine for it. Has a GI physician to follow up with. Labs reviewed, no leukocytosis. H/H 11/33.9. Mild hypokalemia at 3.2, replaced orally. Lipase low. UA showed WBC 0-2. Culture not indicated. Vital signs normal. CT a/p showed thickening of left sided colon concerning for inflammatory change and colitis. Pt is well appearing and tolerating PO so given cipro and metronidazole PO. Return precautions given. Diagnosis Primary Impression: Colitis Patient Instructions: General Instructions Departure Forms: Tests/Procedures Additional Instructions: Please follow up with your logistics engineering manager. Return to the ED if symptoms worsen. Med/Other Pt SpecificInfo: Prescription(s) given Scripts Metronidazole (Metronidazole) 500 Mg Tab 500 MG PO TID for Infection for 7 Days, TAB 0 Refills Prov: Yanet Cervantes DO 09/14/17 Ciprofloxacin (Ciprofloxacin) 500 Mg Tab 500 MG PO BID for Infection for 7 Days, #14 TAB 0 Refills Prov: Yanet Cervantes DO 09/14/17 Disposition: 01 DISCHARGE HOME Condition: Stable Yanet Cervantes DO Sep 14, 2017 07:53
[2017-09-14] MEDS ORDERED: MORPHINE SULFATE 4 MG/ML INJ IV PUSH ONE (08:00)
[2017-09-14 08:07] LABS: BASOPHIL # 0.2 TH/MM3 (0-0.2); BASOPHIL % 1.8 % (0.0-2.0); EOSINOPHIL % 0.4 % (0.0-4.0); HEMATOCRIT 33.9 % (35.0-46.0); LYMPH % 21.7 % (9.0-44.0); LYMPHOCYTE # 2.2 TH/MM3 (1.0-4.8); MEAN CELL VOLUME 86.9 FL (80.0-100.0); MEAN CORPUSCULAR HEMOGLOBIN 28.2 PG (27.0-34.0); MEAN CORPUSCULAR HGB CONC 32.5 % (32.0-36.0); MEAN PLATELET VOLUME 8.1 FL (7.0-11.0); MONO % 15.4 % (0.0-8.0); MONOCYTE # 1.5 TH/MM3 (0-0.9); NEUT % 60.7 % (16.0-70.0); PLATELET COUNT 315 TH/MM3 (150-450); RED BLOOD COUNT 3.91 MIL/MM3 (4.00-5.30); RED CELL DISTRIBUTION WIDTH 14.1 % (11.6-17.2); WHITE BLOOD COUNT 9.9 TH/MM3 (4.0-11.0)
[2017-09-14 08:08] LABS: BILIRUBIN, URINE NEG (NEG); BLOOD, URINE TRACE (NEG); GLUCOSE,URINE NEG (NEG); KETONE, URINE NEG (NEG); NITRITE,URINE NEG (NEG); PH, URINE 6.5 (5.0-8.5); URINE COLOR YELLOW (YELLW/STRAW); URINE LEUKOCYTE ESTERASE SMALL (NEG)
[2017-09-14 08:13] LABS: RBC, URINE 0-3 /hpf (0-3); SQUAMOUS EPITHELIAL CELL URINE 0-5 /hpf (0-5); WBC, URINE 0-2 /hpf (0-5)
[2017-09-14 08:16] LABS: CHLORIDE 103 MEQ/L (98-107); SODIUM (NA) 141 MEQ/L (136-145)
[2017-09-14 08:20] LABS: ALBUMIN 2.6 GM/DL (3.4-5.0); BICARBONATE 30.5 MEQ/L (21.0-32.0); BLOOD UREA NITROGEN 9 MG/DL (7-18); CALCIUM 7.5 MG/DL (8.5-10.1); GLUCOSE,RANDOM 93 MG/DL (74-106)
[2017-09-14 08:23] LABS: ALT (GPT) 19 U/L (10-53); AST (GOT) 22 U/L (15-37); CREATININE 0.85 MG/DL (0.50-1.00); GLOMERULAR FILTRATION RATE 81 ML/MIN (>89)
[2017-09-14 08:25] LABS: TOTAL BILIRUBIN ADULT 0.5 MG/DL (0.2-1.0); TOTAL PROTEIN 7.8 GM/DL (6.4-8.2)
[2017-09-14 08:26] LABS: ALKALINE PHOSPHATASE 91 U/L (45-117)
[2017-09-14] MEDS ORDERED: IOHEXOL 350 MG/ML 10 ML VIAL (for RAD DIAG) IVCONTRAST ONE (08:49)
[2017-09-14 08:50] VITALS: BP 139/77; PULSE 78; RESP 18; O2SAT 97
[2017-09-14] MEDS ORDERED: POTASSIUM CHLORIDE 20 MEQ CONTROLLED RELEASE TAB PO ONE (09:00)
--- NOTE | 2017-09-14 09:17 | RADRPT ---
EXAM DATE: 09/14/2017 8:48 AM EDT AGE/SEX: 62 years / Female INDICATIONS: Lower abdominal pain with loose stool. CLINICAL DATA: This is the patient's initial encounter. Patient reports that signs and symptoms have been present for 4 - 6 days and indicates a pain score of 5/10. MEDICAL/SURGICAL HISTORY: Carcinoma, pancreas. Hypertension. Ulcerative colitis. Hysterectomy . Appendectomy. Cholecystectomy. ORAL CONTRAST: No oral contrast ingested. RADIATION DOSE: 6.16 CTDI (mGy) COMPARISON: [facility], CT ABDOMEN & PELVIS W CONTRAST, 10/23/2016. . TECHNIQUE: Multiple contiguous axial images were obtained through the abdomen and pelvis following b olus infusion of 85 ml Omnipaque 350 (iohexol) nonionic water-soluble contrast as a single exam dos e. No oral contrast ingested. Using automated exposure control and adjustment of the mA and/or kV ac cording to patient size, the radiation dose was kept as low as reasonably achievable to obtain optima l diagnostic quality images. FINDINGS: Lower Lungs: The visualized lower lungs are clear. Liver: There is diffuse decreased attenuation to the liver. The patient is status post cholecystectom y. Clips are seen in the right quadrant. The common bile duct is dilated at 1.2 cm likely reflecting a reservoir phenomenon following cholecystectomy. Some change from the prior exam. Spleen: Homogeneous density without enlargement. Pancreas: There appears to be pancreatic atrophy with the pancreas being reduced in size. Kidneys: Normal in size and shape. No evidence of mass or hydronephrosis. Adrenal Glands: Unremarkable. Aorta: There is minimal scattered aortic calcifications present. No aneurysm is seen. Bowel/Mesentery: There is thickening of the left-sided colon extending from the splenic flexure cr on through the descending colon into the sigmoid and rectal regions.The ascending colon and transvers e colon appear intact. There is a bowel anastomosis suture seen in the small bowel in the right mid a bdomen. This segment of small bowel is dilated measuring 4.9 cm. This appearance is unchanged. Abdominal Wall: Intact. There are 2 small subcutaneous soft tissue nodule seen just to the left of m idline at the level of the umbilicus measuring 0.8 and 0.6 cm. These could represent small lymph node s or granulomas from the postsurgical change. The patient does appear to have evidence of prior midli ne abdominal surgery. These are unchanged. Retroperitoneum: No evidence of adenopathy in the retrocrural, para-aortic, or deep pelvic regions. Bladder: Contours are smooth. Reproductive Organs: The patient is status post hysterectomy. Inguinal: The inguinal region is unremarkable without evidence of adenopathy. Bony Structures: Unremarkable. CONCLUSION: 1. Thickening of the left-sided colon concerning for inflammatory change and colitis. The patient jones s a history of ulcerative colitis which could certainly have this appearance. 2. Hepatic steatosis. 3. Dilatation of the biliary system likely reflect a reservoir phenomenon following cholecystectomy. This is unchanged. 4. Pancreatic atrophy. This is unchanged. Electronically signed by: Jasper Wolf MD 09/14/2017 9:16 AM EDT
[2017-09-14] MEDS ORDERED: metroNIDAZOLE 500 MG TAB PO ONE (10:00)
[2017-09-14] MEDS ORDERED: CIPROFLOXACIN 500 MG TAB PO ONE (10:00)
[2017-09-14 10:10] VITALS: BP 135/71; PULSE 75; RESP 16; O2SAT 98
[2017-09-14] MEDS ORDERED: METR1TAB76 PO (10:15)
[2017-09-14] MEDS ORDERED: CIPR500T2 PO (10:15)
[2017-09-14 10:29] VITALS: BP 132/73
== END 2017-09-14 10:36 | disposition home or self-care (01) ==
LOC: PHED 07:20
DX: K51.90 Ulcerative colitis, unspecified, without complications (principal); R10.30 Lower abdominal pain, unspecified; I10 Essential (primary) hypertension
CPT/HCPCS: 74177; 80053; 81001; 83690; 85025; 96361; 96374; 99284; J2270; J7030; Q9967